=== PATIENT | male | born 1975 | race Two or more races ===

== ENCOUNTER 2017-01-14 14:53 | Inpatient (IN) | payer OTHER ==
[2017-01-14 17:26] VITALS: BMI 26.4
--- NOTE | 2017-01-14 17:45 | HP ---
COWS - Scale Resting Pulse: 0= [place] 80 or Below Sweatin=Flushed/Facial Moisture Restless Observation: 3= Extraneous Movement Pupil Size: 2= Moderately Dilated Bone or Joint Aches: 2= Severe Diffuse Aches Runny Nose/ Eye Tearin= Runny Nose/Eyes GI Upset > 30mins: 3= Vomiting/Diarrhea Tremor Observation: 2= Slight Tremor Visible Yawning Observation: 2= >3x During Session Anxiety or Irritability: 2=Irritable/Anxious Goose Flesh Skin: 0=Smooth Skin COWS Score: 20 Admission ROS BHS - HPI Chief Complaint: I NEED HELP TO STOP USING HEROIN,COCAINE AND MARIJUANA Allergies/Adverse Reactions: Allergies Allergy/AdvReac Type Severity Reaction Status Date / Time No Known Allergies Allergy Unverified 07/14/15 04:00 History of Present Illness: THIS 41 YEARS OLD MALE WITH HEROIN,COCAINE AND MARIJUANA DEPENDENCE,WITHDRAWAL SYMPTOM,NEVER BEEN IN DETOX BEFORE NICOTINE DEPENDENCE LOW BACK PAIN FOR 2 YEARS ,AMBULATION WITH CANE,HERNIATED DISC FOLLOWED UP WITH [facility] NEED HELP TO STOP USING DRUGS Exam Limitations: No Limitations - Ebola screening Have you traveled outside of the country in the last 21 days: No Have you been sick,other than usual withdrawal symptoms: No - Review of Systems Constitutional: Chills, Loss of Appetite, Malaise, Night Sweats, Changes in sleep, Weakness, Unintentional Wgt. Loss EENT: reports: Tearing, Nose Congestion Respiratory: reports: No Symptoms reported Cardiac: reports: Palpitations GI: reports: Diarrhea, Nausea, Vomiting, Abdominal cramping : reports: No Symptoms Reported Musculoskeletal: reports: Back Pain, Joint Pain, Muscle Pain, Joint Stiffness Integumentary: reports: Dryness Neuro: reports: Tremors Endocrine: reports: No Symptoms Reported Hematology: reports: No Symptoms Reported Psychiatric: reports: No Sypmtoms Reported, Judgement Intact, Mood/Affect Appropiate, Orientated x3 Patient History - Patient Medical History Hx Anemia: No Hx Asthma: No Hx Chronic Obstructive Pulmonary Disease (COPD): No Hx Cancer: No Hx Cardiac Disorders: No Hx Congestive Heart Failure: No Hx Hypertension: No Hx Hypercholesterolemia: No Hx Pacemaker: No HX Cerebrovascular Accident: No Hx Seizures: No Hx Dementia: No Hx Diabetes: No Hx Gastrointestinal Disorders: No Hx Liver Disease: No Hx Genitourinary Disorders: No Hx Sexually Transmitted Disorders: No Hx Renal Disease (ESRD): No Hx Thyroid Disease: No Hx Human Immunodeficiency Virus (HIV): No (LAST 08/04 NEGATIVE) Hx Hepatitis C: No Hx Depression: No Hx Suicide Attempt: No Hx Bipolar Disorder: No Hx Schizophrenia: No Other Medical History: LOW BACK PAIN,HERNIATED DISC,AMBULATION WITH CANE - Patient Surgical History Past Surgical History: No - PPD History Previous Implant?: Yes Documented Results: Negative w/o proof Implanted On Prior R Admission?: No PPD to be Administered?: Yes - Smoking Cessation Smoking history: Current every day smoker Have you smoked in the past 12 months: Yes Aproximately how many cigarettes per day: 4 Cigars Per Day: 0 Hx Chewing Tobacco Use: No Initiated information on smoking cessation: Yes 'Breaking Loose' booklet given: 01/14/17 - Substance & Tx. History Hx Alcohol Use: No Hx Substance Use: Yes Substance Use Type: Cocaine, Heroin, Marijuana Hx Substance Use Treatment: No - Substances Abused Heroin Route: Inhalation Frequency: Daily Amount used: 4 BAGS Age of first use: 20 Date of Last Use: 01/13/17 Cocaine Route: Smoking Frequency: Daily Amount used: 40$ Age of first use: 15 Date of Last Use: 01/13/17 Marijuana/Hashish Route: Smoking Frequency: Daily Amount used: 20$ Age of first use: 15 Date of Last Use: 01/13/17 Family Disease History - Family Disease History Family History: Denies Admission Physical Exam S - Vital Signs Vital Signs: Vital Signs - 24 hr 01/14/17 17:23 Temperature 97.1 F L Pulse Rate 65 Respiratory 25 H Rate Blood Pressure 106/66 - Physical General Appearance: Yes: Moderate Distress, Tremorous, Sweating, Anxious HEENTM: Yes: Hearing grossly Normal, Normal ENT Inspection, Pharynx Normal, Nasal Congestion Respiratory: Yes: Lungs Clear, Normal Breath Sounds, No Respiratory Distress Neck: Yes: Within Normal Limits, Supple, Trachea in good position Breast: Yes: Within Normal Limits Cardiology: Yes: Within Normal Limits, Regular Rhythm, Regular Rate, S1, S2 Abdominal: Yes: Within Normal Limits, Normal Bowel Sounds, Non Tender, Flat, Soft Genitourinary: Yes: Within Normal Limits Back: Yes: Muscle Spasm Musculoskeletal: Yes: Back pain, Joint Stiffness, Muscle Pain Extremities: Yes: Normal Range of Motion, Tremors Neurological: Yes: Within Normal Limits (LOW BACK PAIN AMBULATION WITH CANE), section repairer II-XII NML intact, Fully Oriented, Alert Integumentary: Yes: Dry Lymphatic: Yes: Within Normal Limits - Diagnostic (1) Opioid dependence with withdrawal Current Visit: Yes Status: Acute (2) Cocaine dependence Current Visit: Yes Status: Acute (3) Cannabis dependence Current Visit: Yes Status: Acute (4) Low back pain Current Visit: Yes Status: Acute (5) Herniated disc Current Visit: Yes Status: Acute (6) Use of cane as ambulatory aid Current Visit: Yes Status: Acute (7) Weight loss Current Visit: Yes Status: Acute (8) Nicotine dependence Current Visit: Yes Status: Acute Cleared for Admission [facility] - Detox or Rehab [facility] Level of Care: Medically Managed Detox Regimen/Protocol: Methadone [facility] Breath Alcohol Content Breath Alcohol Content: 0 Urine Drug Screen - Results Drug Screen Negative: No Urine Drug Screen Results: THC-Marijuana, AARON-Cocaine, BZO-Benzodiazepines, MTD- Methadone
[2017-01-14] MEDS ORDERED: MAGNESIUM HYDROX 2400MG/30ML ORAL SUSPENSION 30 ML CUP PO PRN (18:01)
[2017-01-14] MEDS ORDERED: MENTHOL/PHENOL 1 EACH UD MM PRN (18:01)
[2017-01-14] MEDS ORDERED: MAGNESIUM CITRATE 300 ML BOTTLE PO PRN (18:01)
[2017-01-14] MEDS ORDERED: LOPERAMIDE HCL 2 MG CAPSULE PO PRN (18:01)
[2017-01-14] MEDS ORDERED: P-EPHED 60MG/TRIPROLIDI 2.5MG TABLET PO PRN (18:01)
[2017-01-14] MEDS ORDERED: MAG HYDROX/AL HYDROX/SIMETH 30 ML UNIT-DOSE CUP PO PRN (18:01)
[2017-01-14] MEDS ORDERED: hydrOXYzine PAMOATE 25 MG CAPSULE (FP) PO PRN (18:01)
[2017-01-14] MEDS ORDERED: guaiFENesin/D-METHORPHAN HB 10 ML UNIT-DOSE CUPS PO PRN (18:01)
[2017-01-14] MEDS ORDERED: METHADONE HCL 10 MG TABLET (FOR DETOX USE ONLY) PO ONE ×2 (18:30→23:00)
[2017-01-14] MEDS: diazePAM 5 MG TABLET PO PRN (19:57)
[2017-01-14] MEDS: CYCLOBENZAPRINE HCL 10 MG TABLET (FP) PO PRN (22:26)
[2017-01-14] MEDS: THIAMINE HCL 100 MG TABLET (FP) PO SCH (22:27)
[2017-01-14] MEDS: cloNIDine HCL 0.1 MG TABLET PO SCH (22:27)
[2017-01-14 22:48] LABS: URINE APPEARANCE CLEAR; URINE BILIRUBIN NEGATIVE (NEGATIVE); URINE BLOOD NEGATIVE (NEGATIVE); URINE COLOR YELLOW; URINE GLUCOSE (UA) NEGATIVE (NEGATIVE); URINE KETONE NEGATIVE (NEGATIVE); URINE LEUK ESTERASE NEGATIVE (NEGATIVE); URINE NITRITE NEGATIVE (NEGATIVE); URINE PROTEIN NEGATIVE (NEGATIVE); URINE UROBILINOGEN 2.0 E.U/dl E.U./dl (0.2-1.0)
[2017-01-15] MEDS: diazePAM 5 MG TABLET PO PRN ×3 (07:13→22:06)
[2017-01-15 09:56] LABS: MCH 26.9 pg (25.7-33.7); MCHC 32.3 g/dl (32.0-35.9); MEAN CELL VOLUME 83.3 fl (80-96); PLATELET COUNT 285 K/MM3 (134-434); RDW 15.2 % (11.9-15.9); WHITE BLOOD COUNT 5.8 K/mm3 (4.0-10.0)
[2017-01-15] MEDS ORDERED: METHADONE HCL 10 MG TABLET (FOR DETOX USE ONLY) PO ONE (10:00)
[2017-01-15] MEDS: cloNIDine HCL 0.1 MG TABLET PO SCH ×2 (10:14→22:06)
[2017-01-15] MEDS: PRENATAL VITAMINS W/ FOLIC ACID TABLET (FP) PO SCH (10:14)
--- NOTE | 2017-01-15 10:41 | PN ---
S COWS - Scale Resting Pulse: 0= [place] 80 or Below Sweatin=Flushed/Facial Moisture Restless Observation: 1= Difficult to Sit Still Pupil Size: 0= Normal to Room Light Bone or Joint Aches: 2= Severe Diffuse Aches Runny Nose/ Eye Tearin= Runny Nose/Eyes GI Upset > 30mins: 1= Stomach Cramp Tremor Observation of Outstretched Hands: 2= Slight Tremor Visible Yawning Observation: 2= >3x During Session Anxiety or Irritability: 2=Irritable/Anxious Goose Flesh Skin: 3=Piloerection COWS Score: 17 S Progress Note (SOAP) Subjective: irritable sweats shakes body aches interrupted sleep Objective: 01/15/17 10:41 Vital Signs Temperature 97.3 F L 01/15/17 10:00 Pulse Rate 64 01/15/17 10:00 Respiratory Rate 20 01/15/17 10:00 Blood Pressure 105/51 01/15/17 10:00 O2 Sat by Pulse Oximetry (%) Laboratory Tests 01/14/17 01/15/17 21:30 07:45 WBC 5.8 RBC 5.08 Hgb 13.7 Hct 42.3 MCV 83.3 MCHC 32.3 RDW 15.2 Plt Count 285 MPV 8.0 Urine Color Yellow Urine Appearance Clear Urine pH 5.0 Ur Specific [place] 1.031 Urine Protein Negative Urine Glucose (UA) Negative Urine Ketones Negative Urine Blood Negative Urine Nitrite Negative Urine Bilirubin Negative Urine Urobilinogen 2.0 e.u/dl Ur Leukocyte Esterase Negative labs pending awake/alert ambulating no acute distress Assessment: 01/15/17 10:42 withdrawal sx bump on forehead with open cut Plan: continue detox increase fluids labs pending bacitracin onintment bid
[2017-01-15 10:43] LABS: ALBUMIN 4.1 g/dl (3.4-5.0); ALK PHOS 103 U/L (45-117); ANION GAP 8 (8-16); BILIRUBIN,TOTAL 0.6 mg/dL (0.2-1.0); CALCIUM 9.1 mg/dL (8.5-10.1); CO2 30 mmol/L (21-32); CREATININE 1.1 mg/dL (0.7-1.3); GLUCOSE,RANDOM 121 mg/dL (74-106); SGOT/AST 23 U/L (15-37); SGPT/ALT 32 U/L (12-78); TOT PROT 7.5 g/dl (6.4-8.2)
[2017-01-15] MEDS: BACITRACIN 0.9 GM PACKET TP SCH ×2 (11:02→22:06)
--- NOTE | 2017-01-15 11:24 | EKG ---
Test Reason : Blood Pressure : / mmHG Vent. Rate : 057 BPM Atrial Rate : 057 BPM P-R Int : 174 ms QRS Dur : 102 ms QT Int : 424 ms P-R-T Axes : 021 070 060 degrees QTc Int : 412 ms SINUS BRADYCARDIA OTHERWISE NORMAL ECG NO PREVIOUS ECGS AVAILABLE Confirmed by LILI MARTINEZ, SALINA ([id number]) on 01/15/2017 11:24:23 AM Referred By: Confirmed By:SALINA PEARSON MD
[2017-01-15 15:32] LABS: SICKLE CELL SCREEN NEGATIVE (NEGATIVE)
[2017-01-15] MEDS: IBUPROFEN 400 MG TABLET (FP) PO PRN (18:46)
[2017-01-15] MEDS: CYCLOBENZAPRINE HCL 10 MG TABLET (FP) PO PRN (22:06)
[2017-01-15] MEDS: THIAMINE HCL 100 MG TABLET (FP) PO SCH (22:06)
[2017-01-15] MEDS: ACETAMINOPHEN 325 MG TABLET (FP) PO PRN (23:14)
[2017-01-16] MEDS ORDERED: METHADONE HCL 5 MG TABLET (FOR DETOX USE ONLY) PO ONE (10:00)
[2017-01-16] MEDS: PRENATAL VITAMINS W/ FOLIC ACID TABLET (FP) PO SCH (10:08)
[2017-01-16] MEDS: cloNIDine HCL 0.1 MG TABLET PO SCH ×2 (10:08→22:06)
[2017-01-16] MEDS: diazePAM 5 MG TABLET PO PRN (10:09)
[2017-01-16] MEDS: BACITRACIN 0.9 GM PACKET TP SCH ×2 (10:09→22:06)
[2017-01-16] MEDS: CYCLOBENZAPRINE HCL 10 MG TABLET (FP) PO PRN (10:09)
--- NOTE | 2017-01-16 10:54 | PN ---
S COWS - Scale Resting Pulse: 0= [place] 80 or Below Sweatin=Flushed/Facial Moisture Restless Observation: 1= Difficult to Sit Still Pupil Size: 1= Pupils >than Normal Bone or Joint Aches: 2= Severe Diffuse Aches Runny Nose/ Eye Tearin= Nasal Congestion GI Upset > 30mins: 1= Stomach Cramp Tremor Observation of Outstretched Hands: 1= Tremor [place], Not Seen Yawning Observation: 0= None Anxiety or Irritability: 2=Irritable/Anxious Goose Flesh Skin: 0=Smooth Skin COWS Score: 11 S Progress Note (SOAP) Subjective: interrupted sleep, sweats, lbp, foot pain , athletes foot Objective: 01/16/17 10:53 Vital Signs Temperature 97.2 F L 01/16/17 10:10 Pulse Rate 58 L 01/16/17 10:10 Respiratory Rate 16 01/16/17 10:10 Blood Pressure 114/68 01/16/17 10:10 O2 Sat by Pulse Oximetry (%) Laboratory Tests 01/14/17 01/15/17 01/15/17 21:30 07:45 07:45 WBC 5.8 RBC 5.08 Hgb 13.7 Hct 42.3 MCV 83.3 MCHC 32.3 RDW 15.2 Plt Count 285 MPV 8.0 Sickle Cell Screen Negative Sodium 137 Potassium 4.6 Chloride 99 Carbon Dioxide 30 Anion Gap 8 BUN 23 H Creatinine 1.1 Creat Clearance w eGFR > 60 Random Glucose 121 H Calcium 9.1 Total Bilirubin 0.6 AST 23 ALT 32 Alkaline Phosphatase 103 Total Protein 7.5 Albumin 4.1 Urine Color Yellow Urine Appearance Clear Urine pH 5.0 Ur Specific [place] 1.031 Urine Protein Negative Urine Glucose (UA) Negative Urine Ketones Negative Urine Blood Negative Urine Nitrite Negative Urine Bilirubin Negative Urine Urobilinogen 2.0 e.u/dl Ur Leukocyte Esterase Negative RPR Titer 01/15/17 07:45 WBC RBC Hgb Hct MCV MCHC RDW Plt Count MPV Sickle Cell Screen Sodium Potassium Chloride Carbon Dioxide Anion Gap BUN Creatinine Creat Clearance w eGFR Random Glucose Calcium Total Bilirubin AST ALT Alkaline Phosphatase Total Protein Albumin Urine Color Urine Appearance Urine pH Ur Specific [place] Urine Protein Urine Glucose (UA) Urine Ketones Urine Blood Urine Nitrite Urine Bilirubin Urine Urobilinogen Ur Leukocyte Esterase RPR Titer Nonreactive pt aox3 lying in bed , ambulates with a cane Assessment: 01/16/17 10:54 withdrawal sx's 01/16/17 10:55 left foot strain 01/16/17 10:56 t. pedis Plan: cont . detox increase fluids motrin prn tinactin bid
[2017-01-16] MEDS: TOLNAFTATE 1% CREAM 15 GM TUBE TP SCH (22:05)
[2017-01-16] MEDS: THIAMINE HCL 100 MG TABLET (FP) PO SCH (22:06)
--- NOTE | 2017-01-17 09:52 | PN ---
BHS COWS - Scale Resting Pulse: 0= [place] 80 or Below Sweatin=Flushed/Facial Moisture Restless Observation: 3= Extraneous Movement Pupil Size: 1= Pupils >than Normal Bone or Joint Aches: 2= Severe Diffuse Aches Runny Nose/ Eye Tearin= Runny Nose/Eyes GI Upset > 30mins: 3= Vomiting/Diarrhea Tremor Observation of Outstretched Hands: 2= Slight Tremor Visible Yawning Observation: 1= 1-2x During Session Anxiety or Irritability: 2=Irritable/Anxious Goose Flesh Skin: 0=Smooth Skin COWS Score: 18 BHS Progress Note (SOAP) Subjective: ALERT,IRRITABLE,ANXIOUS,TREMOR,PAIN IN THE BODY AND BACK, Objective: 01/17/17 09:49 Vital Signs Temperature 97.7 F 01/17/17 06:00 Pulse Rate 53 L 01/17/17 06:00 Respiratory Rate 18 01/17/17 06:00 Blood Pressure 113/66 01/17/17 06:00 O2 Sat by Pulse Oximetry (%) 01/17/17 09:50 Laboratory Last Values WBC 5.8 K/mm3 (4.0-10.0) 01/15/17 07:45 RBC 5.08 M/mm3 (4.00-5.60) 01/15/17 07:45 Hgb 13.7 GM/dL (11.7-16.9) 01/15/17 07:45 Hct 42.3 % (35.4-49) 01/15/17 07:45 MCV 83.3 fl (80-96) 01/15/17 07:45 MCHC 32.3 g/dl (32.0-35.9) 01/15/17 07:45 RDW 15.2 % (11.9-15.9) 01/15/17 07:45 Plt Count 285 K/MM3 (134-434) 01/15/17 07:45 MPV 8.0 fl (7.5-11.1) 01/15/17 07:45 Sickle Cell Screen Negative (NEGATIVE) 01/15/17 07:45 Sodium 137 mmol/L (136-145) 01/15/17 07:45 Potassium 4.6 mmol/L (3.5-5.1) 01/15/17 07:45 Chloride 99 mmol/L (98-107) 01/15/17 07:45 Carbon Dioxide 30 mmol/L (21-32) 01/15/17 07:45 Anion Gap 8 (8-16) 01/15/17 07:45 BUN 23 mg/dL (7-18) H 01/15/17 07:45 Creatinine 1.1 mg/dL (0.7-1.3) 01/15/17 07:45 Creat Clearance w eGFR > 60 (>60) 01/15/17 07:45 Random Glucose 121 mg/dL (74-106) H 01/15/17 07:45 Calcium 9.1 mg/dL (8.5-10.1) 01/15/17 07:45 Total Bilirubin 0.6 mg/dL (0.2-1.0) 01/15/17 07:45 AST 23 U/L (15-37) 01/15/17 07:45 ALT 32 U/L (12-78) 01/15/17 07:45 Alkaline Phosphatase 103 U/L (45-117) 01/15/17 07:45 Total Protein 7.5 g/dl (6.4-8.2) 01/15/17 07:45 Albumin 4.1 g/dl (3.4-5.0) 01/15/17 07:45 Urine Color Yellow 01/14/17 21:30 Urine Appearance Clear 01/14/17 21:30 Urine pH 5.0 (5.0-8.0) 01/14/17 21:30 Ur Specific [place] 1.031 (1.001-1.035) 01/14/17 21:30 Urine Protein Negative (NEGATIVE) 01/14/17 21:30 Urine Glucose (UA) Negative (NEGATIVE) 01/14/17 21:30 Urine Ketones Negative (NEGATIVE) 01/14/17 21:30 Urine Blood Negative (NEGATIVE) 01/14/17 21:30 Urine Nitrite Negative (NEGATIVE) 01/14/17 21:30 Urine Bilirubin Negative (NEGATIVE) 01/14/17 21:30 Urine Urobilinogen 2.0 e.u/dl E.U./dl (0.2-1.0) 01/14/17 21:30 Ur Leukocyte Esterase Negative (NEGATIVE) 01/14/17 21:30 RPR Titer Nonreactive (NONREACTIVE) 01/15/17 07:45 Assessment: 01/17/17 09:51 WITHDRAWAL SYMPTOM Plan: CONTINUE DETOX,INITIAL GLUCOSE IS 121,BGM MONITORING
[2017-01-17] MEDS ORDERED: METHADONE HCL 5 MG TABLET (FOR DETOX USE ONLY) PO ONE (10:00)
[2017-01-17] MEDS: BACITRACIN 0.9 GM PACKET TP SCH ×2 (10:18→22:25)
[2017-01-17] MEDS: diazePAM 5 MG TABLET PO PRN (10:18)
[2017-01-17] MEDS: PRENATAL VITAMINS W/ FOLIC ACID TABLET (FP) PO SCH (10:18)
[2017-01-17] MEDS: CYCLOBENZAPRINE HCL 10 MG TABLET (FP) PO PRN (10:18)
[2017-01-17] MEDS: cloNIDine HCL 0.1 MG TABLET PO SCH ×2 (10:18→22:25)
[2017-01-17] MEDS: TOLNAFTATE 1% CREAM 15 GM TUBE TP SCH ×2 (10:19→22:25)
[2017-01-17] MEDS: THIAMINE HCL 100 MG TABLET (FP) PO SCH (22:25)
[2017-01-17] MEDS: diphenhydrAMINE HCL 50 MG CAPSULE PO PRN (22:26)
[2017-01-17] MEDS: ACETAMINOPHEN 325 MG TABLET (FP) PO PRN (22:49)
--- NOTE | 2017-01-18 09:44 | PN ---
S Progress Note (SOAP) Subjective: ALERT,IRRITABLE,ANXIOUS,INTERRUPTED SLEEP Objective: 01/18/17 09:43 Vital Signs Temperature 98.1 F 01/18/17 06:10 Pulse Rate 69 01/18/17 06:10 Respiratory Rate 16 01/18/17 06:10 Blood Pressure 105/61 01/18/17 06:10 O2 Sat by Pulse Oximetry (%) Assessment: 01/18/17 09:44 WITHDRAWAL SYMPTOM Plan: CONTINUE DETOX,DISCHARGE IN AM
[2017-01-18] MEDS ORDERED: METHADONE HCL 10 MG TABLET (FOR DETOX USE ONLY) PO ONE (10:00)
[2017-01-18] MEDS: PRENATAL VITAMINS W/ FOLIC ACID TABLET (FP) PO SCH (10:03)
[2017-01-18] MEDS: CYCLOBENZAPRINE HCL 10 MG TABLET (FP) PO PRN (10:04)
[2017-01-18] MEDS: TOLNAFTATE 1% CREAM 15 GM TUBE TP SCH ×2 (10:04→22:57)
[2017-01-18] MEDS: BACITRACIN 0.9 GM PACKET TP SCH ×2 (10:04→22:13)
[2017-01-18] MEDS: cloNIDine HCL 0.1 MG TABLET PO SCH ×2 (10:04→22:14)
[2017-01-18] MEDS: IBUPROFEN 400 MG TABLET (FP) PO PRN (10:07)
[2017-01-18] MEDS: THIAMINE HCL 100 MG TABLET (FP) PO SCH (22:14)
[2017-01-18] MEDS: diphenhydrAMINE HCL 50 MG CAPSULE PO PRN (22:14)
[2017-01-19] MEDS: diphenhydrAMINE HCL 50 MG CAPSULE PO PRN (01:22)
[2017-01-19] MEDS: ACETAMINOPHEN 325 MG TABLET (FP) PO PRN (01:23)
[2017-01-19 05:39] VITALS: BP 112/64; PULSE 51; TEMP 99.1
[2017-01-19] MEDS ORDERED: METHADONE HCL 5 MG TABLET (FOR DETOX USE ONLY) PO ONE (06:00)
--- NOTE | 2017-01-19 08:27 | PN ---
S Progress Note (SOAP) Subjective: ALERT,NO COMPLAINT Objective: 01/19/17 08:26 Vital Signs Temperature 99.1 F 01/19/17 05:38 Pulse Rate 51 L 01/19/17 05:38 Respiratory Rate 18 01/19/17 05:38 Blood Pressure 112/64 01/19/17 05:38 O2 Sat by Pulse Oximetry (%) Assessment: 01/19/17 08:26 DETOX COMPLETED,NO WITHDRAWAL SYMPTOM Plan: DISCHARGE TODAY,FOLLOW UP WITH AFTER CARE PROGRAM ARRANGEMENT
--- NOTE | 2017-01-19 08:30 | DS ---
[facility] Detox Discharge Summary Admission Date: 01/14/17 Discharge Date: 01/19/17 - History Present History: Cannabis Dependence, Cocaine Dependence, Opioid Dependence Additional Comments: FOLLOW UP WITH AFTER CARE PROGRAM ARRANGEMENT Pertinent Past History: LOW BACK PAIN HERNIATED DISC NICOTINE DEPENDENCE CANE AMBULATION WEIGHT LOSS - Physical Exam Results Vital Signs: Vital Signs Temperature 99.1 F 01/19/17 05:38 Pulse Rate 51 L 01/19/17 05:38 Respiratory Rate 18 01/19/17 05:38 Blood Pressure 112/64 01/19/17 05:38 O2 Sat by Pulse Oximetry (%) Pertinent Admission Physical Exam Findings: WITHDRAWAL SYMPTOM - Treatment Hospital Course: Detox Protocol Followed, Detoxed Safely, Responded well, Discharged Condition Good - Medication Discharge Medications: Ambulatory Orders Cyclobenzaprine HCl [Flexeril -] 10 mg PO TID PRN #15 tablet 07/14/15 Oxycodone HCl/Acetaminophen [Percocet 5/325 -] 1 tab PO Q6H PRN 07/14/15 Tramadol HCl 50 mg PO BID PRN #10 tablet 07/14/15 - Diagnosis (1) Opioid dependence with withdrawal Current Visit: Yes Status: Acute (2) Cocaine dependence Current Visit: Yes Status: Acute (3) Cannabis dependence Current Visit: Yes Status: Acute (4) Low back pain Current Visit: Yes Status: Acute (5) Herniated disc Current Visit: Yes Status: Acute (6) Use of cane as ambulatory aid Current Visit: Yes Status: Acute (7) Weight loss Current Visit: Yes Status: Acute (8) Nicotine dependence Current Visit: Yes Status: Acute - AMA Did Patient Leave Against Medical Advice: No
[2017-01-19] MEDS: PRENATAL VITAMINS W/ FOLIC ACID TABLET (FP) PO SCH (09:43)
[2017-01-19] MEDS: cloNIDine HCL 0.1 MG TABLET PO SCH (09:43)
== END 2017-01-19 10:05 | disposition home or self-care (01) | DRG 773 ==
LOC: YASAS 14:53 → Y6N 18:10
PROVIDERS: ADMIT Internal Medicine; ATTEND Internal Medicine
PROC: HZ2ZZZZ Detoxification Services for Substance Abuse Treatment (ICD-10-PCS; principal; 2017-01-14)
DX: F11.23 Opioid dependence with withdrawal (principal); F14.20 Cocaine dependence, uncomplicated; F12.20 Cannabis dependence, uncomplicated; F17.210 Nicotine dependence, cigarettes, uncomplicated; B26.2 Mumps encephalitis; R26.2 Difficulty in walking, not elsewhere classified; M54.5 Low back pain; S96.912A Strain of unspecified muscle and tendon at ankle and foot level, left foot, initial encounter; S09.90XA Unspecified injury of head, initial encounter; S01.81XA Laceration without foreign body of other part of head, initial encounter; X58.XXXA Exposure to other specified factors, initial encounter; Y93.9 Activity, unspecified; Y92.9 Unspecified place or not applicable
CPT/HCPCS: 36415; 80053; 81003; 85027; 85660; 86593; 93005; 93010

== ENCOUNTER → 2017-01-19 | Emergency (ER) | payer OTHER ==
[~2017-01-19] MED LIST: NALOXONE HCL 0.4 MG/ML VIAL IVPUSH ONE; ONDANSETRON 4 MG/2 ML VIAL IVPB ONE; ONDANSETRON 4 MG/2 ML VIAL ONE
[2017-01-19 16:25] VITALS: BMI 24.3
[2017-01-19 16:59] LABS: BASOPHIL 0.8 % (0-2.0); EOSINOPHIL 5.7 % (0-4.5); MCH 27.5 pg (25.7-33.7); MCHC 33.2 g/dl (32.0-35.9); MEAN CELL VOLUME 82.7 fl (80-96); MEAN PLT VOLUME 7.8 fl (7.5-11.1); NEUTROPHILS 54.3 % (42.8-82.8); PLATELET COUNT 300 K/MM3 (134-434); RDW 15.8 % (11.9-15.9); WHITE BLOOD COUNT 8.8 K/mm3 (4.0-10.0)
--- NOTE | 2017-01-19 17:06 | PDOC ---
History of Present Illness <Alvin Cruz - Last Filed: 01/19/17 17:05> - General History Source: Patient, Old Records Exam Limitations: No Limitations - History of Present Illness Initial Comments: 01/19/17 17:06 The patient is a 43 year old male with cocaine, heroin and marijuana abuse who was brought into the emergency department unresponsive from security. The patient was discharged from [facility] at 8:30 am this morning, was picked up by his friend and subsequently went out and ingested narcotics which is unknown at this time. Upon presentation the patient had pinpoint pupils and 88 O2 sat on room air. Subsequently administering narcan, the patient regained consciousness. He was confused and unaware of his surroundings. He reports he is unsure of what he ingested. <Lara Mayfield - Last Filed: 01/19/17 17:37> <Theodora Samano - Last Filed: 01/19/17 21:02> - General Chief Complaint: Overdose Stated Complaint: UNRESPONSIVE Time Seen by Provider: 01/19/17 16:27 Past History - Past Medical History Anemia: No Asthma: No Cancer: No Cardiac Disorders: No CVA: No COPD: No CHF: No Dementia: No Diabetes: No GI Disorders: No Disorders: No HTN: No Hypercholesterolemia: No Kidney Stones: No Liver Disease: No Suicide Attempt (Hx): No Seizures: No Thyroid Disease: No - Surgical History Abdominal Surgery: No Appendectomy: No Cardiac Surgery: No Cholecystectomy: No Lung Surgery: No Neurologic Surgery: No Orthopedic Surgery: No - Reproductive History Testicular Surgery: No - Psycho/Social/Smoking Cessation Hx Anxiety: No Suicidal Ideation: No Smoking History: Unknown if ever smoked Have you smoked in the past 12 months: Yes Number of Cigarettes Smoked Daily: 4 Cigars Per Day: 0 Information on smoking cessation initiated: No 'Breaking Loose' booklet given: 01/14/17 Hx Alcohol Use: No Drug/Substance Use Hx: Yes Substance Use Type: Cocaine, Heroin, Marijuana Hx Substance Use Treatment: No <Alvin Cruz - Last Filed: 01/19/17 17:05> <Lara Mayfield - Last Filed: 01/19/17 17:37> <Theodora Samano - Last Filed: 01/19/17 21:02> - Past Medical History Allergies/Adverse Reactions: Allergies Allergy/AdvReac Type Severity Reaction Status Date / Time No Known Allergies Allergy Unverified 01/14/17 19:14 Home Medications: Ambulatory Orders Cyclobenzaprine HCl [Flexeril -] 10 mg PO TID PRN #15 tablet 07/14/15 Oxycodone HCl/Acetaminophen [Percocet 5/325 -] 1 tab PO Q6H PRN 07/14/15 Tramadol HCl 50 mg PO BID PRN #10 tablet 07/14/15 Review of Systems - Review of Systems Able to Perform ROS?: Yes Comments:: 01/19/17 17:08 GENERAL/CONSTITUTIONAL: No fever or chills. No weakness. HEAD, EYES, EARS, NOSE AND THROAT: No change in vision. No ear pain or discharge. No sore throat. CARDIOVASCULAR: No chest pain or shortness of breath. RESPIRATORY: No cough, wheezing, or hemoptysis. GASTROINTESTINAL: No nausea, vomiting, diarrhea or constipation. GENITOURINARY: No dysuria, frequency, or change in urination. MUSCULOSKELETAL: No joint or muscle swelling or pain. No neck or back pain. SKIN: No rash NEUROLOGIC: No headache, vertigo, loss of consciousness, or change in strength/ sensation. ENDOCRINE: No increased thirst. No abnormal weight change. HEMATOLOGIC/LYMPHATIC: No anemia, easy bleeding, or history of blood clots. ALLERGIC/IMMUNOLOGIC: No hives or skin allergy. All Other Systems: Reviewed and Negative <Lara Mayfield - Last Filed: 01/19/17 17:37> *Physical Exam - Vital Signs Last Vital Signs Temp Pulse Resp BP Pulse Ox 98.9 F 88 10 L 113/88 100 01/19/17 16:15 01/19/17 16:15 01/19/17 16:15 01/19/17 16:15 01/19/17 16:25 <Alvin Cruz - Last Filed: 01/19/17 17:05> - Vital Signs Last Vital Signs Temp Pulse Resp BP Pulse Ox 98.9 F 88 10 L 113/88 100 01/19/17 16:15 01/19/17 16:15 01/19/17 16:15 01/19/17 16:15 01/19/17 16:25 - Physical Exam Comments: 01/19/17 17:10 Upon arrival patient had pinpoint pupils and was not breathing. Exam was performed later on after patient regained consciousness. GENERAL: Awake, alert, and fully oriented, in no acute distress HEAD: No signs of trauma EYES: PERRLA, EOMI, sclera anicteric, conjunctiva clear ENT: Auricles normal inspection, hearing grossly normal, nares patent, oropharynx clear without exudates. Moist mucosa NECK: Normal ROM, supple, no lymphadenopathy, JVD, or masses LUNGS: Breath sounds equal, clear to auscultation bilaterally. No wheezes, and no crackles HEART: Regular rate and rhythm, normal S1 and S2, no murmurs, rubs or gallops ABDOMEN: Soft, nontender, normoactive bowel sounds. No guarding, no rebound. No masses EXTREMITIES: Normal range of motion, no edema. No clubbing or cyanosis. No cords, erythema, or tenderness NEUROLOGICAL: Cranial nerves II through XII grossly intact. Normal speech, normal gait SKIN: Warm, Dry, normal turgor, no rashes or lesions noted. <Lara Mayfield - Last Filed: 01/19/17 17:37> - Vital Signs Last Vital Signs Temp Pulse Resp BP Pulse Ox 98.2 F 74 18 112/82 97 01/19/17 20:13 01/19/17 20:13 01/19/17 20:13 01/19/17 20:13 01/19/17 20:13 <Theodora Samano - Last Filed: 01/19/17 21:02> Heart Score/ECG Review - ECG Intrepretation Comment:: 01/19/17 17:17 ECG obtained at 16:21 Normal sinus at 87 bpm <Lara Mayfield - Last Filed: 01/19/17 17:37> ED Treatment Course - LABORATORY CBC & Chemistry Diagram: 01/19/17 16:45 01/19/17 16:45 - ADDITIONAL ORDERS Additional order review: 01/19/17 16:45 RBC 4.69 MCV 82.7 MCHC 33.2 RDW 15.8 MPV 7.8 Neutrophils % 54.3 Lymphocytes % 31.2 Monocytes % 8.0 Eosinophils % 5.7 H Basophils % 0.8 - Medications Given in the ED: ED Medications Discontinued Medications Generic Name Dose Route Start Last Admin Trade Name Freq PRN Reason Stop Dose Admin Naloxone HCl 0.4 mg 01/19/17 16:28 01/19/17 16:25 Narcan - IVPUSH 01/19/17 16:29 0.4 mg ONCE ONE Administration Ondansetron HCl 8 mg 01/19/17 16:29 01/19/17 16:40 Zofran Injection IVPB 01/19/17 16:30 8 mg ONCE ONE Administration <Alvin Cruz - Last Filed: 01/19/17 17:05> - LABORATORY CBC & Chemistry Diagram: 01/19/17 16:45 01/19/17 16:45 - ADDITIONAL ORDERS Additional order review: 01/19/17 16:45 RBC 4.69 MCV 82.7 MCHC 33.2 RDW 15.8 MPV 7.8 Neutrophils % 54.3 Lymphocytes % 31.2 Monocytes % 8.0 Eosinophils % 5.7 H Basophils % 0.8 - Medications Given in the ED: ED Medications Discontinued Medications Generic Name Dose Route Start Last Admin Trade Name Ciro PRN Reason Stop Dose Admin Naloxone HCl 0.4 mg 01/19/17 16:28 01/19/17 16:25 Narcan - IVPUSH 01/19/17 16:29 0.4 mg ONCE ONE Administration Ondansetron HCl 8 mg 01/19/17 16:29 01/19/17 16:40 Zofran Injection IVPB 01/19/17 16:30 8 mg ONCE ONE Administration <Lara Mayfield - Last Filed: 01/19/17 17:37> - LABORATORY CBC & Chemistry Diagram: 01/19/17 16:45 01/19/17 16:45 - ADDITIONAL ORDERS Additional order review: Laboratory Results 01/19/17 01/19/17 01/19/17 16:45 16:45 16:45 INR 0.91 Sodium 135 L Potassium 4.9 Chloride 95 L Carbon Dioxide 30 Anion Gap 10 BUN 14 D Creatinine 1.0 Creat Clearance w eGFR > 60 Random Glucose 94 D Calcium 9.0 Total Bilirubin 0.2 D AST 51 H D ALT 80 H D Alkaline Phosphatase 110 Total Protein 7.7 Albumin 3.9 Urine Color Urine Appearance Urine pH Ur Specific [place] Urine Protein Urine Glucose (UA) Urine Ketones Urine Blood Urine Nitrite Urine Bilirubin Urine Urobilinogen Ur Leukocyte Esterase Urine RBC Urine WBC Hyaline Casts Opiates Screen Methadone Screen Barbiturate Screen Phencyclidine Screen Ur Amphetamines Screen MDMA (Ecstasy) Screen Benzodiazepines Screen Cocaine Screen U Marijuana (THC) Screen Alcohol, Quantitative < 5.0 01/19/17 01/19/17 16:30 16:30 INR Sodium Potassium Chloride Carbon Dioxide Anion Gap BUN Creatinine Creat Clearance w eGFR Random Glucose Calcium Total Bilirubin AST ALT Alkaline Phosphatase Total Protein Albumin Urine Color Ltyellow Urine Appearance Clear Urine pH 7.0 D Ur Specific [place] 1.012 Urine Protein Negative Urine Glucose (UA) Negative Urine Ketones Negative Urine Blood Negative Urine Nitrite Negative Urine Bilirubin Negative Urine Urobilinogen Negative Ur Leukocyte Esterase 2+ H Urine RBC 1 Urine WBC 4 Hyaline Casts 3 Opiates Screen Positive Methadone Screen Positive Barbiturate Screen Negative Phencyclidine Screen Positive Ur Amphetamines Screen Negative MDMA (Ecstasy) Screen Negative Benzodiazepines Screen Positive Cocaine Screen Negative U Marijuana (THC) Screen Negative Alcohol, Quantitative 01/19/17 16:45 RBC 4.69 MCV 82.7 MCHC 33.2 RDW 15.8 MPV 7.8 Neutrophils % 54.3 Lymphocytes % 31.2 Monocytes % 8.0 Eosinophils % 5.7 H Basophils % 0.8 - Medications Given in the ED: ED Medications Discontinued Medications Generic Name Dose Route Start Last Admin Trade Name Andreaq PRN Reason Stop Dose Admin Naloxone HCl 0.4 mg 01/19/17 16:28 01/19/17 16:25 Narcan - IVPUSH 01/19/17 16:29 0.4 mg ONCE ONE Administration Ondansetron HCl 8 mg 01/19/17 16:29 01/19/17 16:40 Zofran Injection IVPB 01/19/17 16:30 8 mg ONCE ONE Administration <Theodora Samano - Last Filed: 01/19/17 21:02> Medical Decision Making - Medical Decision Making 01/19/17 17:11 The patient is a 43 year old male with cocaine, heroin and marijuana abuse who was brought into the emergency department unresponsive from security. Patient regained consciousness with 0.4 of narcan and placement of nasopharyngeal airway. Was increasingly gaining consciousness and awareness of surroundings, but unable to explain how he ended up. Subsequently began vomiting. ECG obtained and will obtain labs/toxicology. <Lara Mayfield - Last Filed: 01/19/17 17:37> *DC/Admit/Observation/Transfer <Alvin Cruz - Last Filed: 01/19/17 17:05> - Attestations Scribe Attestion: 01/19/17 17:11 Documentation prepared by Lara Mayfield, acting as back office medical assistant for Alvin Cruz DO. <Lara Mayfield - Last Filed: 01/19/17 17:37> - Discharge Dispostion Admit: No <Theodora Samano - Last Filed: 01/19/17 21:02> Diagnosis at time of Disposition: Polysubstance dependence - Discharge Dispostion Disposition: HOME Condition at time of disposition: Stable - Patient Instructions Printed Discharge Instructions: Getting Treatment for Drug Addiction
[2017-01-19 17:08] LABS: INR 0.91 (0.82-1.09)
[2017-01-19 17:12] VITALS: PULSE 74
[2017-01-19 17:20] LABS: ALBUMIN 3.9 g/dl (3.4-5.0); ANION GAP 10 (8-16); CO2 30 mmol/L (21-32); GLUCOSE,RANDOM 94 mg/dL (74-106); SGOT/AST 51 U/L (15-37); SGPT/ALT 80 U/L (12-78)
[2017-01-19 17:21] LABS: ALK PHOS 110 U/L (45-117); BILIRUBIN,TOTAL 0.2 mg/dL (0.2-1.0); TOT PROT 7.7 g/dl (6.4-8.2)
[2017-01-19 20:14] VITALS: BP 112/82; TEMP 98.2
[2017-01-19 20:31] LABS: URINE APPEARANCE CLEAR; URINE BILIRUBIN NEGATIVE (NEGATIVE); URINE BLOOD NEGATIVE (NEGATIVE); URINE COLOR LTYELLOW; URINE GLUCOSE (UA) NEGATIVE (NEGATIVE); URINE KETONE NEGATIVE (NEGATIVE); URINE NITRITE NEGATIVE (NEGATIVE); URINE PROTEIN NEGATIVE (NEGATIVE); URINE UROBILINOGEN NEGATIVE E.U./dl (0.2-1.0)
[2017-01-19 20:35] LABS: URINE LEUK ESTERASE 2+ (NEGATIVE)
[2017-01-19 20:37] LABS: URINE HYALINE CAST 3 /lpf; URINE RBC 1 /hpf (0-3); URINE WBC 4 /hpf (3-5)
[2017-01-19 20:50] LABS: URINE MARIJUANA THC NEGATIVE ng/ml (CUTOFF=50)
--- NOTE | 2017-01-21 08:05 | EKG ---
Test Reason : Blood Pressure : / mmHG Vent. Rate : 087 BPM Atrial Rate : 087 BPM P-R Int : 166 ms QRS Dur : 104 ms QT Int : 364 ms P-R-T Axes : 053 039 059 degrees QTc Int : 438 ms NORMAL SINUS RHYTHM POSSIBLE LEFT ATRIAL ENLARGEMENT BORDERLINE ECG WHEN COMPARED WITH ECG OF 14-JAN-2017 19:20, VENT. RATE HAS INCREASED BY 30 BPM Confirmed by BENITA GAMEZ MD ([id number]) on 01/21/2017 8:04:40 AM Referred By: Confirmed By:BENITA GAMEZ MD
== END | disposition home or self-care (01) ==
LOC: JER 16:13
PROC: 3E033GC Introduction of Other Therapeutic Substance into Peripheral Vein, Percutaneous Approach (ICD-10-PCS; principal; 2017-01-19)
DX: F19.10 Other psychoactive substance abuse, uncomplicated (principal); F11.10 Opioid abuse, uncomplicated
CPT/HCPCS: 36415; 80053; 80307; 81003; 81015; 85025; 85610; 93005; 93010; 96374; 96375; 99285-25

== ENCOUNTER 2017-01-20 00:13 | Emergency (ER) | payer OTHER ==
[2017-01-20 00:32] VITALS: BMI 25.1
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
--- NOTE | 2017-01-20 08:17 | PDOC ---
*Physical Exam - Vital Signs Last Vital Signs Temp Pulse Resp BP Pulse Ox 98.2 F 79 18 122/58 96 01/20/17 00:22 01/20/17 00:22 01/20/17 00:22 01/20/17 00:22 01/20/17 00:22 Medical Decision Making - Medical Decision Making 01/20/17 08:12 41y M hx hx of opoid use signed out to me from dr. Samano pt states feeling improved requestin gto leave, declines sw consultation. return precautions were discussed I discussed the physical exam findings, ancillary test results and final diagnoses with the patient. I answered all of the patient's questions. The patient was satisfied with the care received and felt comfortable with the discharge plan and treatment plan. The patient will call their primary care physician within 24 hours to arrange follow-up and will return to the Emergency Department with any new, persistent or worsening symptoms. *DC/Admit/Observation/Transfer Diagnosis at time of Disposition: Intoxication - Discharge Dispostion Disposition: HOME Condition at time of disposition: Improved Admit: No - Referrals Referrals: [facility] [Provider Group] - Patient Instructions Printed Discharge Instructions: DI for Opioid Addiction Additional Instructions: Return to the emergency department immediately with ANY new, persistent or worsening symptoms. You MUST call and follow up with your doctor tomorrow for further evaluation of your symptoms. Results were discussed with you. Please make sure your doctor reviews the results of your emergency evaluation. If you had any xrays during your visit, it was read preliminarily by myself, a Radiologist will review it and if there are any additional findings we will call you. Print Language: INDONESIAN
[2017-01-20 08:42] VITALS: BP 122/77; PULSE 78; TEMP 98
== END 2017-01-20 08:42 | disposition home or self-care (01) ==
LOC: JER 00:13
DX: F11.20 Opioid dependence, uncomplicated (principal); F16.10 Hallucinogen abuse, uncomplicated; F13.10 Sedative, hypnotic or anxiolytic abuse, uncomplicated
CPT/HCPCS: 99282-25

== ENCOUNTER 2017-03-14 14:11 | Inpatient (IN) | payer OTHER ==
[2017-03-14 17:41] VITALS: BMI 26.7
--- NOTE | 2017-03-14 20:42 | HP ---
COWS - Scale Resting Pulse: 0= [place] 80 or Below Sweatin=Flushed/Facial Moisture Restless Observation: 1= Difficult to Sit Still Pupil Size: 0= Normal to Room Light Bone or Joint Aches: 1= Mild Discomfort Runny Nose/ Eye Tearin= Runny Nose/Eyes GI Upset > 30mins: 2= Nausea/Diarrhea Tremor Observation: 1= Tremor [place], Not Seen Yawning Observation: 1= 1-2x During Session Anxiety or Irritability: 2=Irritable/Anxious Goose Flesh Skin: 3=Piloerection COWS Score: 15 Admission ROS S - HPI Chief Complaint: WITHDRAWAL SYMPTOMS Allergies/Adverse Reactions: Allergies Allergy/AdvReac Type Severity Reaction Status Date / Time No Known Allergies Allergy Verified 01/20/17 00:26 History of Present Illness: 41 Y.O. MAN WITH AN EXTENSIVE HISTORY OF HEROIN, COCAINE AND MARIJUANA DEPENDENCE IS HERE SEEKING DETOX. HE DOES NOT HAVE A SIGNIFICANT PERIOD OF SOBRIETY. THIS HIS IS SECOND ADMISSION HERE FOR DETOX. Exam Limitations: No Limitations - Ebola screening Have you traveled outside of the country in the last 21 days: No Have you been sick,other than usual withdrawal symptoms: No - Review of Systems Constitutional: Chills, Loss of Appetite, Night Sweats, Changes in sleep EENT: reports: No Symptoms Reported Respiratory: reports: Cough Cardiac: reports: Lightheadedness GI: reports: Nausea, Poor Appetite : reports: No Symptoms Reported Musculoskeletal: reports: Back Pain, Other (LEFT KNEE) Integumentary: reports: No Symptoms Reported Neuro: reports: No Symptoms reported Endocrine: reports: No Symptoms Reported Hematology: reports: No Symptoms Reported Psychiatric: reports: Orientated x3, Anxious, Depressed Other Systems: Reviewed and Negative Patient History - Patient Medical History Hx Anemia: No Hx Asthma: Yes Hx Chronic Obstructive Pulmonary Disease (COPD): No Hx Cancer: No Hx Cardiac Disorders: No Hx Congestive Heart Failure: No Hx Hypertension: No Hx Hypercholesterolemia: No Hx Pacemaker: No HX Cerebrovascular Accident: No Hx Seizures: No Hx Dementia: No Hx Diabetes: No Hx Gastrointestinal Disorders: Yes (DYSPEPSIA ) Hx Liver Disease: No Hx Genitourinary Disorders: No Hx Sexually Transmitted Disorders: No Hx Renal Disease (ESRD): No Hx Thyroid Disease: No Hx Human Immunodeficiency Virus (HIV): No (LAST 08/04 NEGATIVE) Hx Hepatitis C: No Hx Depression: Yes Hx Suicide Attempt: No Hx Bipolar Disorder: No Hx Schizophrenia: No - Patient Surgical History Past Surgical History: No Hx Neurologic Surgery: No Hx Cataract Extraction: No Hx Cardiac Surgery: No Hx Lung Surgery: No Hx Breast Surgery: No Hx Breast Biopsy: No Hx Abdominal Surgery: No Hx Appendectomy: No Hx Cholecystectomy: No Hx Genitourinary Surgery: No Hx Section: No Hx Orthopedic Surgery: No Anesthesia Reaction: No - PPD History Previous Implant?: Yes Documented Results: Negative w/proof Date: 01/16/17 Results: 0 PPD to be Administered?: Yes - Reproductive History Patient is a Female of Child Bearing Age (11 -55 yrs old): No - Smoking Cessation Smoking history: Current every day smoker Have you smoked in the past 12 months: Yes Aproximately how many cigarettes per day: 4 Cigars Per Day: 0 Hx Chewing Tobacco Use: No Initiated information on smoking cessation: Yes 'Breaking Loose' booklet given: 03/14/17 - Substance & Tx. History Hx Alcohol Use: No Hx Substance Use: Yes Substance Use Type: Cocaine, Heroin, Marijuana Hx Substance Use Treatment: Yes (DETOX ) - Substances Abused Heroin Route: Inhalation Frequency: Daily Amount used: 10 BAGS DAILY Age of first use: 19 Date of Last Use: 03/12/17 Crack Route: Inhalation Frequency: 3-6 times per week Amount used: $150/WEEK Age of first use: 20 Date of Last Use: 03/12/17 Marijuana/Hashish Route: Oral Frequency: Daily Amount used: $10/DAILY Age of first use: 15 Date of Last Use: 03/12/17 Family Disease History - Family Disease History Family Disease History: Heart Disease: Father Admission Physical Exam [facility] - Vital Signs Vital Signs: Vital Signs - 24 hr 03/14/17 17:38 Temperature 96.9 F L Pulse Rate 79 Respiratory 18 Rate Blood Pressure 131/88 - Physical General Appearance: Yes: Disheveled, Irritable HEENTM: Yes: Hearing grossly Normal, Normocephalic, Normal Voice Respiratory: Yes: Lungs Clear, Normal Breath Sounds, No Respiratory Distress, No Accessory Muscle Use Neck: Yes: No masses,lesions,Nodules, Trachea in good position Breast: Yes: Breast Exam Deferred Cardiology: Yes: Regular Rate, S1, S2 Abdominal: Yes: Flat, Soft Genitourinary: Yes: Other (NO COMPLAINTS REPORTED) Back: Yes: Normal Inspection Musculoskeletal: Yes: Within Normal Limits Extremities: Yes: Normal Range of Motion, Non-Tender Neurological: Yes: Alert, Confused Integumentary: Yes: Normal Color, Dry, Warm Lymphatic: Yes: Within Normal Limits - Diagnostic (1) Cannabis dependence Current Visit: Yes Status: Chronic (2) Cocaine dependence Current Visit: Yes Status: Chronic (3) Low back pain Current Visit: Yes Status: Chronic (4) Nicotine dependence Current Visit: Yes Status: Chronic (5) Opioid dependence with withdrawal Current Visit: Yes Status: Chronic (6) Asthma Current Visit: Yes Status: Chronic Cleared for Admission [facility] - Detox or Rehab [facility] Level of Care: Medically Managed Detox Regimen/Protocol: Methadone [facility] Breath Alcohol Content Breath Alcohol Content: 0 Urine Drug Screen - Results Drug Screen Negative: No Urine Drug Screen Results: AARON-Cocaine, OPI-Opiates, AMP-Amphetamines, MET- Methamphetamine, BZO-Benzodiazepines
[2017-03-14] MEDS ORDERED: MAGNESIUM HYDROX 2400MG/30ML ORAL SUSPENSION 30 ML CUP PO PRN (21:04)
[2017-03-14] MEDS ORDERED: IBUPROFEN 400 MG TABLET (FP) PO PRN (21:04)
[2017-03-14] MEDS ORDERED: LOPERAMIDE HCL 2 MG CAPSULE PO PRN (21:04)
[2017-03-14] MEDS ORDERED: MAG HYDROX/AL HYDROX/SIMETH 30 ML UNIT-DOSE CUP PO PRN (21:04)
[2017-03-14] MEDS ORDERED: P-EPHED 60MG/TRIPROLIDI 2.5MG TABLET PO PRN (21:04)
[2017-03-14] MEDS ORDERED: MENTHOL/PHENOL 1 EACH UD MM PRN (21:04)
[2017-03-14] MEDS ORDERED: MAGNESIUM CITRATE 300 ML BOTTLE PO PRN (21:04)
[2017-03-14] MEDS ORDERED: NICOTINE POLACRILEX 2 MG GUM BUC PRN (21:04)
[2017-03-14] MEDS ORDERED: ACETAMINOPHEN 325 MG TABLET (FP) PO PRN (21:04)
[2017-03-14] MEDS ORDERED: METHADONE HCL 10 MG TABLET (FOR DETOX USE ONLY) PO ONE ×2 (21:04→23:00)
[2017-03-14] MEDS: diazePAM 5 MG TABLET PO PRN (22:44)
[2017-03-14] MEDS: THIAMINE HCL 100 MG TABLET (FP) PO SCH (22:44)
[2017-03-15] MEDS: diphenhydrAMINE HCL 50 MG CAPSULE PO PRN ×2 (00:29→22:35)
[2017-03-15] MEDS: guaiFENesin/D-METHORPHAN HB 10 ML UNIT-DOSE CUPS PO PRN ×2 (00:31→18:31)
[2017-03-15 01:55] LABS: URINE APPEARANCE CLEAR; URINE BILIRUBIN NEGATIVE (NEGATIVE); URINE BLOOD NEGATIVE (NEGATIVE); URINE COLOR STRAW; URINE GLUCOSE (UA) NEGATIVE (NEGATIVE); URINE KETONE NEGATIVE (NEGATIVE); URINE LEUK ESTERASE NEGATIVE (NEGATIVE); URINE NITRITE NEGATIVE (NEGATIVE); URINE PROTEIN NEGATIVE (NEGATIVE); URINE UROBILINOGEN NEGATIVE E.U./dl (0.2-1.0)
[2017-03-15] MEDS ORDERED: METHADONE HCL 10 MG TABLET (FOR DETOX USE ONLY) PO ONE (10:00)
[2017-03-15] MEDS: PRENATAL VITAMINS W/ FOLIC ACID TABLET (FP) PO SCH (10:19)
[2017-03-15] MEDS: NICOTINE 14 MG/24 HOURS TOPICAL PATCH TD SCH (10:20)
--- NOTE | 2017-03-15 12:30 | CONSULT ---
[facility] Psychiatric Consult - Data Date of interview: 03/15/17 Admission source: [facility] Identifying data: Patient is approached at beside for psychiatric interview.He refuses. " Come back tomorrow or Friday.I am tired.I am not interested in talking now.Bye." Staff is made aware.
--- NOTE | 2017-03-15 13:08 | PN ---
[facility] COWS - Scale Resting Pulse: 1= [place] 81-100 Sweatin=Flushed/Facial Moisture Restless Observation: 1= Difficult to Sit Still Pupil Size: 0= Normal to Room Light Bone or Joint Aches: 2= Severe Diffuse Aches Runny Nose/ Eye Tearin= Nasal Congestion GI Upset > 30mins: 2= Nausea/Diarrhea Tremor Observation of Outstretched Hands: 2= Slight Tremor Visible Yawning Observation: 1= 1-2x During Session Anxiety or Irritability: 2=Irritable/Anxious Goose Flesh Skin: 0=Smooth Skin COWS Score: 14 B[facility] Progress Note (SOAP) Subjective: shakes, sweats and irritability Objective: 03/15/17 13:07 Vital Signs - 8 hr 03/15/17 10:28 Temperature 97.2 F L Pulse Rate 85 Respiratory 20 Rate Blood Pressure 127/90 Laboratory Last Values Urine Color Straw 03/14/17 00:35 Urine Appearance Clear 03/14/17 00:35 Urine pH 7.0 (5.0-8.0) 03/14/17 00:35 Urine Protein Negative (NEGATIVE) 03/14/17 00:35 Urine Glucose (UA) Negative (NEGATIVE) 03/14/17 00:35 Urine Ketones Negative (NEGATIVE) 03/14/17 00:35 Urine Blood Negative (NEGATIVE) 03/14/17 00:35 Urine Nitrite Negative (NEGATIVE) 03/14/17 00:35 Urine Bilirubin Negative (NEGATIVE) 03/14/17 00:35 Urine Urobilinogen Negative E.U./dl (0.2-1.0) 03/14/17 00:35 Ur Leukocyte Esterase Negative (NEGATIVE) 03/14/17 00:35 labs pending Assessment: 03/15/17 13:08 withdrawal sx Plan: continue detox
[2017-03-15] MEDS: diazePAM 5 MG TABLET PO PRN ×2 (18:30→22:34)
[2017-03-15] MEDS: ALBUTEROL SO4 6.7 GM HFA INHALER IH PRN (19:30)
[2017-03-15] MEDS ORDERED: ALBUTEROL SO4 6.7 GM HFA INHALER IH ONE (19:31)
[2017-03-15] MEDS: THIAMINE HCL 100 MG TABLET (FP) PO SCH (22:33)
[2017-03-16 09:28] LABS: BASOPHIL 1.2 % (0-2.0); EOSINOPHIL 4.5 % (0-4.5); MCH 27.9 pg (25.7-33.7); MCHC 33.3 g/dl (32.0-35.9); MEAN CELL VOLUME 83.8 fl (80-96); MEAN PLT VOLUME 7.4 fl (7.5-11.1); NEUTROPHILS 43.4 % (42.8-82.8); PLATELET COUNT 296 K/MM3 (134-434); RDW 13.7 % (11.9-15.9); WHITE BLOOD COUNT 5.9 K/mm3 (4.0-10.0)
[2017-03-16 09:45] LABS: ALBUMIN 3.2 g/dl (3.4-5.0); ALK PHOS 85 U/L (45-117); ANION GAP 6 (8-16); BILIRUBIN,TOTAL 0.3 mg/dL (0.2-1.0); CALCIUM 8.6 mg/dL (8.5-10.1); CO2 29 mmol/L (21-32); COCKROFT - GAULT 148.1; CREATININE 0.8 mg/dL (0.7-1.3); GLUCOSE,RANDOM 84 mg/dL (74-106); SGOT/AST 20 U/L (15-37); SGPT/ALT 28 U/L (12-78); TOT PROT 6.2 g/dl (6.4-8.2)
[2017-03-16] MEDS ORDERED: METHADONE HCL 5 MG TABLET (FOR DETOX USE ONLY) PO ONE (10:00)
[2017-03-16] MEDS: NICOTINE 14 MG/24 HOURS TOPICAL PATCH TD SCH (10:17)
[2017-03-16] MEDS: PRENATAL VITAMINS W/ FOLIC ACID TABLET (FP) PO SCH (10:17)
--- NOTE | 2017-03-16 15:25 | PN ---
S COWS - Scale Resting Pulse: 0= [place] 80 or Below Sweatin=Flushed/Facial Moisture Restless Observation: 3= Extraneous Movement Pupil Size: 1= Pupils >than Normal Bone or Joint Aches: 2= Severe Diffuse Aches Runny Nose/ Eye Tearin= Runny Nose/Eyes GI Upset > 30mins: 3= Vomiting/Diarrhea Tremor Observation of Outstretched Hands: 2= Slight Tremor Visible Yawning Observation: 1= 1-2x During Session Anxiety or Irritability: 2=Irritable/Anxious Goose Flesh Skin: 0=Smooth Skin COWS Score: 18 S Progress Note (SOAP) Subjective: Diarrhea, chills, back pain, body ache, interrupted sleep, anxious Objective: 03/16/17 15:24 Last Vital Signs Temp Pulse Resp BP Pulse Ox 96.9 F L 65 18 125/86 03/16/17 13:52 03/16/17 13:52 03/16/17 13:52 03/16/17 13:52 Laboratory Tests 03/14/17 03/16/17 03/16/17 00:35 07:50 07:50 WBC 5.9 D RBC 4.65 Hgb 13.0 Hct 39.0 MCV 83.8 MCHC 33.3 RDW 13.7 D Plt Count 296 MPV 7.4 L Neutrophils % 43.4 D Lymphocytes % 44.6 H D Monocytes % 6.3 Eosinophils % 4.5 Basophils % 1.2 Sodium Potassium Chloride Carbon Dioxide Anion Gap BUN Creatinine Creat Clearance w eGFR Random Glucose Calcium Total Bilirubin AST ALT Alkaline Phosphatase Total Protein Albumin Urine Color Straw Urine Appearance Clear Urine pH 7.0 Ur Specific [place] < 1.005 L Urine Protein Negative Urine Glucose (UA) Negative Urine Ketones Negative Urine Blood Negative Urine Nitrite Negative Urine Bilirubin Negative Urine Urobilinogen Negative Ur Leukocyte Esterase Negative RPR Titer Nonreactive 03/16/17 07:50 WBC RBC Hgb Hct MCV MCHC RDW Plt Count MPV Neutrophils % Lymphocytes % Monocytes % Eosinophils % Basophils % Sodium 139 Potassium 4.5 Chloride 104 Carbon Dioxide 29 Anion Gap 6 L BUN 12 Creatinine 0.8 Creat Clearance w eGFR > 60 Random Glucose 84 Calcium 8.6 Total Bilirubin 0.3 D AST 20 D ALT 28 D Alkaline Phosphatase 85 D Total Protein 6.2 L Albumin 3.2 L Urine Color Urine Appearance Urine pH Ur Specific [place] Urine Protein Urine Glucose (UA) Urine Ketones Urine Blood Urine Nitrite Urine Bilirubin Urine Urobilinogen Ur Leukocyte Esterase RPR Titer Labs noted Assessment: 03/16/17 15:25 Withdrawal symptoms Plan: Continue detox
[2017-03-16] MEDS: guaiFENesin/D-METHORPHAN HB 10 ML UNIT-DOSE CUPS PO PRN (15:38)
[2017-03-16] MEDS: diazePAM 5 MG TABLET PO PRN ×2 (15:38→22:12)
[2017-03-16] MEDS: THIAMINE HCL 100 MG TABLET (FP) PO SCH (22:11)
[2017-03-16] MEDS: ALBUTEROL SO4 6.7 GM HFA INHALER IH PRN (22:12)
[2017-03-16] MEDS: diphenhydrAMINE HCL 50 MG CAPSULE PO PRN (22:13)
[2017-03-17] MEDS ORDERED: METHADONE HCL 5 MG TABLET (FOR DETOX USE ONLY) PO ONE (10:00)
[2017-03-17] MEDS: PRENATAL VITAMINS W/ FOLIC ACID TABLET (FP) PO SCH (10:16)
[2017-03-17] MEDS: NICOTINE 14 MG/24 HOURS TOPICAL PATCH TD SCH (10:17)
--- NOTE | 2017-03-17 11:33 | EKG ---
Test Reason : Blood Pressure : / mmHG Vent. Rate : 066 BPM Atrial Rate : 066 BPM P-R Int : 174 ms QRS Dur : 106 ms QT Int : 430 ms P-R-T Axes : 048 083 060 degrees QTc Int : 450 ms NORMAL SINUS RHYTHM NORMAL ECG WHEN COMPARED WITH ECG OF 19-JAN-2017 16:21, NO SIGNIFICANT CHANGE WAS FOUND Confirmed by BENITA GAMEZ MD ([id number]) on 03/17/2017 11:32:37 AM Referred By: Confirmed By:BENITA GAMEZ MD
--- NOTE | 2017-03-17 14:20 | PN ---
[facility] Progress Note (SOAP) Subjective: Sweating, vomiting, anxious, restless, dizziness Objective: 03/17/17 14:19 Last Vital Signs Temp Pulse Resp BP Pulse Ox 96.2 F L 70 18 112/79 03/17/17 13:46 03/17/17 13:46 03/17/17 13:46 03/17/17 13:46 Laboratory Tests 03/14/17 03/16/17 03/16/17 00:35 07:50 07:50 WBC 5.9 D RBC 4.65 Hgb 13.0 Hct 39.0 MCV 83.8 MCHC 33.3 RDW 13.7 D Plt Count 296 MPV 7.4 L Neutrophils % 43.4 D Lymphocytes % 44.6 H D Monocytes % 6.3 Eosinophils % 4.5 Basophils % 1.2 Sodium Potassium Chloride Carbon Dioxide Anion Gap BUN Creatinine Creat Clearance w eGFR Random Glucose Calcium Total Bilirubin AST ALT Alkaline Phosphatase Total Protein Albumin Urine Color Straw Urine Appearance Clear Urine pH 7.0 Ur Specific [place] < 1.005 L Urine Protein Negative Urine Glucose (UA) Negative Urine Ketones Negative Urine Blood Negative Urine Nitrite Negative Urine Bilirubin Negative Urine Urobilinogen Negative Ur Leukocyte Esterase Negative RPR Titer Nonreactive 03/16/17 07:50 WBC RBC Hgb Hct MCV MCHC RDW Plt Count MPV Neutrophils % Lymphocytes % Monocytes % Eosinophils % Basophils % Sodium 139 Potassium 4.5 Chloride 104 Carbon Dioxide 29 Anion Gap 6 L BUN 12 Creatinine 0.8 Creat Clearance w eGFR > 60 Random Glucose 84 Calcium 8.6 Total Bilirubin 0.3 D AST 20 D ALT 28 D Alkaline Phosphatase 85 D Total Protein 6.2 L Albumin 3.2 L Urine Color Urine Appearance Urine pH Ur Specific [place] Urine Protein Urine Glucose (UA) Urine Ketones Urine Blood Urine Nitrite Urine Bilirubin Urine Urobilinogen Ur Leukocyte Esterase RPR Titer Labs noted Assessment: 03/17/17 14:20 Withdrawal symptoms Plan: Continue detox Encouraged to drink lots of water
[2017-03-17] MEDS: diazePAM 5 MG TABLET PO PRN ×2 (15:02→20:59)
[2017-03-17] MEDS: THIAMINE HCL 100 MG TABLET (FP) PO SCH (22:19)
[2017-03-18] MEDS: hydrOXYzine PAMOATE 50 MG CAPSULE (FP) PO PRN ×2 (06:04→17:19)
[2017-03-18] MEDS ORDERED: METHADONE HCL 10 MG TABLET (FOR DETOX USE ONLY) PO ONE (10:00)
[2017-03-18] MEDS: PRENATAL VITAMINS W/ FOLIC ACID TABLET (FP) PO SCH (10:38)
[2017-03-18] MEDS: NICOTINE 14 MG/24 HOURS TOPICAL PATCH TD SCH (10:39)
--- NOTE | 2017-03-18 11:03 | PN ---
BHS Progress Note (SOAP) Subjective: ANXIETY, SWEATS, SLIGHT TREMORS. Objective: 03/18/17 11:03 Vital Signs Temperature 98.4 F 03/18/17 09:17 Pulse Rate 67 03/18/17 09:17 Respiratory Rate 18 03/18/17 09:17 Blood Pressure 113/82 03/18/17 09:17 O2 Sat by Pulse Oximetry (%) Assessment: 03/18/17 11:03 WITHDRAWAL SX Plan: CONTINUE DETOX
[2017-03-18] MEDS: THIAMINE HCL 100 MG TABLET (FP) PO SCH (23:09)
[2017-03-19] MEDS ORDERED: METHADONE HCL 5 MG TABLET (FOR DETOX USE ONLY) PO ONE (06:00)
[2017-03-19 06:42] VITALS: BP 112/82; PULSE 60; TEMP 96.7
[2017-03-19] MEDS: NICOTINE 14 MG/24 HOURS TOPICAL PATCH TD SCH (10:30)
[2017-03-19] MEDS: PRENATAL VITAMINS W/ FOLIC ACID TABLET (FP) PO SCH (10:30)
--- NOTE | 2017-03-19 11:27 | DS ---
[facility] Detox Discharge Summary Admission Date: 03/14/17 Discharge Date: 03/19/17 - History Present History: Cannabis Dependence, Cocaine Dependence, Opioid Dependence Additional Comments: DETOX COMPLETED. D/C'D TODAY. Pertinent Past History: ASTHMA DYSPEPSIA DEPRESSION - Physical Exam Results Vital Signs: Vital Signs Temperature 96.7 F L 03/19/17 06:42 Pulse Rate 60 03/19/17 06:42 Respiratory Rate 18 03/19/17 06:42 Blood Pressure 112/82 03/19/17 06:42 O2 Sat by Pulse Oximetry (%) Pertinent Admission Physical Exam Findings: WITHDRAWAL SX - Treatment Hospital Course: Detox Protocol Followed, Detoxed Safely, Responded well, Discharged Condition Good - Medication Discharge Medications: Ambulatory Orders NK [No Known Home Medication] 01/20/17 - Diagnosis (1) Asthma Current Visit: Yes Status: Chronic (2) Low back pain Current Visit: Yes Status: Chronic Qualifiers: Chronicity: unspecified (3) Nicotine dependence Current Visit: Yes Status: Acute Qualifiers: Nicotine product type: cigarettes Substance use status: in withdrawal Qualified Code(s): F17.213 - Nicotine dependence, cigarettes, with withdrawal (4) Opioid dependence with withdrawal Current Visit: Yes Status: Acute - AMA Did Patient Leave Against Medical Advice: No
== END 2017-03-19 12:24 | disposition home or self-care (01) | DRG 773 ==
LOC: YASAS 14:11 → Y3N 18:50
PROVIDERS: ADMIT Internal Medicine; ATTEND Internal Medicine
PROC: HZ2ZZZZ Detoxification Services for Substance Abuse Treatment (ICD-10-PCS; principal; 2017-03-14)
DX: F11.23 Opioid dependence with withdrawal (principal); F17.213 Nicotine dependence, cigarettes, with withdrawal; J45.909 Unspecified asthma, uncomplicated; M54.5 Low back pain; G89.29 Other chronic pain; R10.13 Epigastric pain
CPT/HCPCS: 36415; 80053; 81003; 85025; 86593; 93005; 93010